=== PATIENT | female | born 1965 | race American Indian/Alaskan Native ===

== ENCOUNTER 2016-09-13 07:49 | Day surgery (SDC) | payer BC, MEDICARE ==
[~2016-09-13 07:49] MED LIST: ANCEF/STERILE WATER 2 GM/20 ML IV NR; HEPARIN SUB-Q NR; MARCAINE-EPI 0.25%-1:200,000 INFILTRATI ONE
[2016-09-13] MEDS ORDERED: ZOFRAN IV PRN (08:36)
--- NOTE | 2016-09-13 08:36 | Anesthesia Day of Surgery ---
Anesthesia Day of Surgery - Day of Surgery Patient Examined: Yes Patient H&P Reviewed: Yes Patient is NPO: Yes
--- NOTE | 2016-09-13 08:39 | Anesthesia Consultation ---
Anesthesia Consult and Med Hx Date of service: 09/13/16 - Airway Anesthetic Teeth Evaluation: Good, Crowns ROM Head & Neck: Adequate Mental/Hyoid Distance: Adequate Mallampati Class: Class II Intubation Access Assessment: Probably Good - Pulmonary Exam CTA: Yes - Cardiac Exam Cardiac Exam: RRR - Pre-Operative Health Status ASA Pre-Surgery Classification: ASA3 Proposed Anesthetic Plan: General - Pulmonary Hx Smoking: No Hx Asthma: No Hx Sleep Apnea: No (JUSTO PRE SCREEN LOW RISK) - Cardiovascular System Hx Hypertension: No - Central Nervous System Hx Back Pain: Yes (reumatoid arthritis) Hx Psychiatric Problems: Yes - Endocrine Hx Renal Disease: No (s/p creation of ureteral pouch for injured ureter) Hx End Stage Renal Disease: No (interstitial cystitis) Hx Cirrhosis: No Hx Liver Disease: No - Hematic Hx Anemia: Yes (Idiopathic thrombocytopenic purpura) - Other Systems Hx Cancer: No Hx Obesity: Yes
[2016-09-13] MEDS ORDERED: DIPRIVAN 10 MG/ML IV ONE (08:45)
[2016-09-13] MEDS ORDERED: DECADRON ONE (08:45)
[2016-09-13] MEDS ORDERED: XYLOCAINE MPF 2% ONE (08:48)
[2016-09-13 08:54] LABS: Basophils % (Auto) 0.8 % (0.0-1.8); Hematocrit 36.9 % (30.3-42.9); Hemoglobin 12.2 gm/dl (10.1-14.3); Mean Corpuscular HGB Conc 33 % (30-34); Mean Corpuscular Hemoglobin 28 pg (28-32); Mean Corpuscular Volume 85 fl (79-97); Red Blood Count 4.36 M/mm3 (3.65-5.03); Red Cell Distribution Width 13.3 % (13.2-15.2); White Blood Count 4.7 K/mm3 (4.5-11.0)
[2016-09-13] MEDS ORDERED: NACL 0.9% 1000 ML 1,000 ML IV SCH (09:00)
[2016-09-13] MEDS ORDERED: PEPCID PO NR (09:00)
[2016-09-13] MEDS ORDERED: VERSED IV NR (09:00)
[2016-09-13 09:01] LABS: Platelet Count 59 K/mm3 (140-440)
[2016-09-13] MEDS ORDERED: MARCAINE-EPI 0.25%-1:200,000 INFILTRATI ONE (09:10)
[2016-09-13] MEDS ORDERED: ePHEDrine SULFATE ONE (09:51)
[2016-09-13] MEDS ORDERED: ZEMURON IV ONE (10:00)
[2016-09-13] MEDS ORDERED: ROBINUL ONE ×2 (10:01)
[2016-09-13] MEDS ORDERED: NEOSTIGMINE ONE (10:01)
--- NOTE | 2016-09-13 10:15 | Short Stay Summary ---
Short Stay Documentation Date of service: 09/13/16 - Allergies and Medications Current Medications: Allergies acetaminophen [From Percocet] Allergy (Verified 09/06/16 11:32) Itching aspirin Allergy (Verified 09/28/15 14:31) Bleeding UNABLE TO TAKE BECAUSE OF ITP ibuprofen Allergy (Verified 09/28/15 14:31) Bleeding UNABLE TO TAKE DUE TO ITP meperidine HCl [From Demerol] Allergy (Verified 09/28/15 14:31) Headache STATES CAUSES HALLUCINATIONS oxycodone HCl [From Percocet] Allergy (Verified 09/06/16 11:32) Itching Sulfa (Sulfonamide Antibiotics) Allergy (Verified 09/28/15 14:31) Bleeding CAUSES LOW PLATLET LEVELS Home Medications Medication Instructions Recorded Confirmed Last Taken Type Meclizine [Antivert] 25 mg PO TID PRN #30 tablet 05/01/14 09/06/16 1 Month Ago Rx HYDROcodone/APAP 5-325 [Norris 1 - 2 each PO Q6HR PRN #14 tablet 05/24/1510/05/15 21:00 Rx 5-325 mg TAB] Cholecalciferol (Vitamin D3) 1,000 unit PO DAILY 09/28/15 09/13/16 09/10/16 09: 00 History [Vitamin D3] Esomeprazole Magnesium [NexIUM] 40 mg PO QDAY 09/28/15 09/13/16 09/10/16 09:00 History Estradiol 2 mg PO DAILY 09/28/15 09/13/16 09/10/16 09:00 History Pedi Multivit #61/Vit D3/Vit K 1 cap PO DAILY 09/28/15 09/06/16 10/04/15 History [Complete Formulation Multivit] Pentosan (Nf) [Elmiron (Nf)] 100 mg PO BID 09/28/15 09/06/16 10/04/15 History Prednisone [predniSONE (Faisal) ER 2 mg PO PRN PRN 09/28/15 09/06/16 1 Year Ago History TAB] Vitamin E 400 unit PO DAILY 09/28/15 09/13/16 09/10/16 09:00 History Azelastine 0.1% (Nf) [Astelin (Nf)] 1 spray INNOSTRIL QDAY 09/06/16 09/13/16 09:00 History Benzonatate [Benzonatate] 100 mg PO QDAY 09/06/16 09/13/16 09/10/16 09:00 History Cyclobenzaprine [Flexeril] 10 mg PO TID PRN 09/06/16 09/13/16 Unknown History Naloxegol Oxalate [Movantik] 25 mg PO QDAY 09/06/16 09/13/16 09/10/16 09:00 History Nitrofurantoin Macrocrystal 25 mg PO QDAY 09/06/16 09/13/16 09/10/16 09:00 History [Nitrofurantoin] Omeprazole 40 mg PO QDAY 09/06/16 09/13/16 09/10/16 09:00 History Active Medications Cefazolin Sodium (Ancef/Sterile Water 2 Gm/20 Ml) 2 gm IV PREOP NR Stop: 09/13/16 15:00 Heparin Sodium (Porcine) (Heparin) 5,000 unit SUB-Q PREOP NR Stop: 09/13/16 15:00 Last Admin: 09/13/16 08:54 Dose: 5,000 unit Hydromorphone HCl (Dilaudid) 0.5 mg IV Q10MIN PRN PRN Reason: Pain , Severe (7-10) Stop: 09/13/16 15:00 Sodium Chloride (Nacl 0.9% 1000 Ml) 1,000 mls @ 75 mls/hr IV DIRECT COLLIN Last Admin: 09/13/16 09:02 Dose: 75 mls/hr Midazolam HCl (Versed) 2 mg IV PREOP NR Stop: 09/13/16 23:59 Last Admin: 09/13/16 09:03 Dose: 2 mg - Brief post op/procedure progress note Date of procedure: 09/13/16 Pre-op diagnosis: RUQ abdominal pain Post-op diagnosis: same Procedure: Diagnostic laparoscopy with lysis of adhesions Anesthesia: GETA, local Surgeon: MACKENZIE WILKINSON Estimated blood loss: none Pathology: none Condition: stable - Disposition Condition at discharge: Good Disposition: DC-01 TO HOME OR SELFCARE Short Stay Discharge Plan Activity: no restrictions Diet: regular Wound: remove dressing (09/15/16 and then may shower) Follow up with: EMMA COMER MD [Primary Care Provider] - 7 Days MACKENZIE WILKINSON MD [Staff Physician] - 7 Days Prescriptions: HYDROcodone/APAP 5-325 [Norris 5/325] 1 - 2 each PO Q4HR PRN #30 tablet PRN Reason: Pain
--- NOTE | 2016-09-13 11:02 | Post Anesthesia Evaluation ---
- Post Anesthesia Evaluation Patient Participated: Yes Airway Patent: Yes Stable Respiratory Function: Yes Nausea/Vomiting: No Temp > 96.8F: Yes Pain Manageable: Yes Adequeate Hydration: Yes Anesthesia Complications: No Block Receding Appropriately: Not Applicable Patient on Ventilator: No
[2016-09-13] MEDS ORDERED: ZOFRAN ONE (11:15)
[2016-09-13] MEDS: DILAUDID IV PRN ×2 (11:22→11:32)
[2016-09-13] MEDS ORDERED: ZOFRAN IV ONE ×2 (11:30→13:00)
--- NOTE | 2016-09-13 11:55 | Operative Report ---
PREOPERATIVE DIAGNOSIS: Right upper quadrant abdominal pain. POSTOPERATIVE DIAGNOSIS: Right upper quadrant abdominal pain. PROCEDURE: Laparoscopic exploration with lysis of adhesions. SURGEON: Rylan Hines MD ANESTHESIA: General and local. ESTIMATED BLOOD LOSS: Minimal. SPECIMEN: None. DRAINS: None. IMPLANTS: None. COMPLICATIONS: None. INDICATIONS: This is a 51-year-old female who has right upper quadrant abdominal pain with nondiagnostic workup, presents now for a laparoscopic exploration, possible lysis of adhesions. OPERATIVE COURSE: The patient was brought to the operating room, identified, and placed in the supine position. General anesthesia was achieved. Her abdomen was prepped and draped in the usual manner. Prior to all incisions, the area was infiltrated with 0.25% Marcaine. We used prior scars and started with a left lateral 5 mm incision and using Veress needle technique. The abdomen was insufflated to 15 mmHg pressure. A 5 mm trocar was inserted using a 30-degree 5-mm telescope. The trocars were placed under direct vision, which included a left lower quadrant port site and an infraumbilical 5 mm port site. The abdomen was explored. She had mild fibrosis of the falciform ligament going to the supraumbilical area. This could potentially be causing some discomfort, so we freed this up and there were no other signs of ventral hernias, except for a small less than 1 cm incisional hernia at the infraumbilical scar, but this was so small and so broad-based and shallow that there was no risk of any incarceration and I do not believe this was the source of her discomfort. There was a small adhesion between the hepatic flexure and the abdominal wall, which we lysed with a sharp and minimal cautery. The surface of the liver was normal. There is no obvious hernia underneath the falciform ligament, which was otherwise soft and pliable. There were some omental adhesions to the lower midline, which we took down with some sharp dissection with very minimal cautery and there were some small bowel adhesions way down into the pelvis. There were no signs of any obstruction and these were nowhere near where her pain was and 2 lysis adhesions were higher risk of injury to the bowels consist the potential benefits was almost zero. I did not feel it was in her best interest to lysis adhesions to the bowel in the pelvis, so these were left in place. Otherwise, there was no other pathology seen, other than what was described. We therefore then removed the ports under direct vision. No signs of bleeding from the port site when evacuated the CO2 and then closed all the incisions with a 4-0 Vicryl suture, Steri-Strips and bandage. Please note also we did examine the surface of the bowel, the appendix, stomach and these were all normal in appearance. [facility]# [id number] ZACKERY/NTS
[2016-09-13 13:13] VITALS: BP 130/72
== END 2016-09-13 13:20 | disposition home or self-care (01) ==
LOC: OR 07:49
PROVIDERS: ATTEND Surgery
DX: K43.2 Incisional hernia without obstruction or gangrene (principal); N73.6 Female pelvic peritoneal adhesions (postinfective); K21.9 Gastro-esophageal reflux disease without esophagitis; E78.00 Pure hypercholesterolemia, unspecified; M06.9 Rheumatoid arthritis, unspecified; D64.9 Anemia, unspecified; E66.9 Obesity, unspecified; Z68.29 Body mass index [BMI] 29.0-29.9, adult; Z88.2 Allergy status to sulfonamides; Z88.8 Allergy status to other drugs, medicaments and biological substances; Z98.890 Other specified postprocedural states; Z90.710 Acquired absence of both cervix and uterus; Z79.899 Other long term (current) drug therapy; Z80.1 Family history of malignant neoplasm of trachea, bronchus and lung
CPT/HCPCS: 36415; 49320; 85025; J0690; J1100; J1170; J1644; J2250; J2405; J2704; J2710; J7030

== ENCOUNTER 2020-05-10 05:54 | Observation (INO) | payer BC ==
--- NOTE | 2020-05-10 06:15 | Event Note ---
ED Screening Note Date of service: 05/10/20 Time: 06:13 ED Screening Note: pt presents s/p syncope this am, states she passed at home striking chin and forehead on floor now with headache, and neck pain This initial assessment/diagnostic orders/clinical plan/treatment(s) is/are subject to change based on patients health status, clinical progression and re- assessment by fellow clinical providers in the ED. Further treatment and workup at subsequent clinical providers discretion. Patient/guardian urged not to elope from the ED as their condition may be serious if not clinically assessed and managed. Initial orders include: ct head, c spine, ekg, trop, cbc, cmp ua, cxr
[2020-05-10] MEDS ORDERED: SODIUM CHLORIDE 0.9% 1000 ML 1,000 ML IV ONE (06:38)
[2020-05-10 06:57] LABS: Basophils % (Auto) 0.6 % (0.0-1.8); Eosinophils # (Auto) 0.1 K/mm3 (0.0-0.4); Eosinophils % (Auto) 1.1 % (0.0-4.3); Hematocrit 34.4 % (30.3-42.9); Hemoglobin 11.5 gm/dl (10.1-14.3); Lymphocytes # (Auto) 2.7 K/mm3 (1.2-5.4); Lymphocytes % (Auto) 40.3 % (13.4-35.0); Mean Corpuscular HGB Conc 33 % (30-34); Mean Corpuscular Volume 88 fl (79-97); Monocytes # (Auto) 0.5 K/mm3 (0.0-0.8); Monocytes % (Auto) 7.5 % (0.0-7.3); Red Blood Count 3.93 M/mm3 (3.65-5.03); Red Cell Distribution Width 13.1 % (13.2-15.2)
[2020-05-10 06:58] LABS: Alanine Aminotransferase 26 units/L (7-56); Albumin 4.1 g/dL (3.9-5); BUN/Creatinine Ratio 12; Blood Urea Nitrogen 13 mg/dL (7-17); Calcium 8.9 mg/dL (8.4-10.2); Hemolysis Index 3
[2020-05-10 06:59] LABS: Platelet Count 75 K/mm3 (140-440)
--- NOTE | 2020-05-10 07:02 | Cat Scan Report ---
CT HEAD WITHOUT CONTRAST INDICATION / CLINICAL INFORMATION: Syncope. Fall. TECHNIQUE: All CT scans at this location are performed using CT dose reduction for ALARA by means of automated exposure control. COMPARISON: None available. FINDINGS: HEMORRHAGE: None. EXTRA-AXIAL SPACES: Normal in size and morphology for the patient's age. VENTRICULAR SYSTEM: Normal in size and morphology for the patient's age. CEREBRAL PARENCHYMA: No significant abnormality. No acute territorial infarct. MIDLINE SHIFT / HERNIATION: None. CEREBELLUM / BRAINSTEM: No significant abnormality. ORBITS: Normal as visualized. SOFT TISSUES: No significant abnormality. SKULL: No significant abnormality. PARANASAL SINUSES / MASTOID AIR CELLS: Normal as visualized. ADDITIONAL FINDINGS: None. IMPRESSION: 1. No acute intracranial abnormality. Signer Name: Elham Mckoy MD Signed: 05/10/2020 6:57 AM Workstation Name: [id number]
--- NOTE | 2020-05-10 07:03 | Cat Scan Report ---
CT MAXILLOFACIAL WITHOUT CONTRAST INDICATION / CLINICAL INFORMATION: Syncope, fall, jaw pain and swelling. TECHNIQUE: All CT scans at this location are performed using CT dose reduction for ALARA by means of automated exposure control. COMPARISON: None available. FINDINGS: FACIAL BONES: No fracture or other significant abnormality. PARANASAL SINUSES: No significant abnormality. ORBITS: No significant abnormality. SOFT TISSUES: Soft tissue swelling around the chin. VISUALIZED INTRACRANIAL STRUCTURES: No significant abnormality. ADDITIONAL FINDINGS: None. IMPRESSION: 1. No facial bone fracture. 2. Soft tissue swelling around the chin. Signer Name: Elham Mckoy MD Signed: 05/10/2020 6:59 AM Workstation Name: [id number]
--- NOTE | 2020-05-10 07:04 | Cat Scan Report ---
CT CERVICAL SPINE WITHOUT CONTRAST INDICATION / CLINICAL INFORMATION: Syncope, fall, now with neck pain. TECHNIQUE: Axial CT images were obtained through the cervical spine. Sagittal and coronal reformatted images were produced. All CT scans at this location are performed using CT dose reduction for ALARA by means of automated exposure control. COMPARISON: None available. FINDINGS: VERTEBRAE: No significant abnormality. ALIGNMENT: No significant abnormality. DISC SPACES: No significant abnormality. FACET JOINTS: No significant abnormality. CRANIOCERVICAL JUNCTION:No significant abnormality. SPINAL CANAL: No significant abnormality. PARASPINAL SOFT TISSUES: No significant abnormality. ADDITIONAL FINDINGS: None. LUNG APICES: No significant abnormality of visualized lungs. IMPRESSION: 1. No significant abnormality. Signer Name: Elham Mckoy MD Signed: 05/10/2020 7:00 AM Workstation Name: [id number]
[2020-05-10 07:05] LABS: INR 0.97 (0.87-1.13)
[2020-05-10 07:06] LABS: Partial Thromboplastin Time 22.5 Sec. (24.2-36.6)
--- NOTE | 2020-05-10 07:39 | XRay Report ---
CHEST 1 VIEW 05/10/2020 6:31 AM INDICATION / CLINICAL INFORMATION: syncope. COMPARISON: 05/24/15 FINDINGS: SUPPORT DEVICES: None. HEART / MEDIASTINUM: No significant abnormality. LUNGS / PLEURA: No significant pulmonary or pleural abnormality. No pneumothorax. ADDITIONAL FINDINGS: No significant additional findings. IMPRESSION: 1. No acute findings. No change. Signer Name: Elham Mckoy MD Signed: 05/10/2020 7:35 AM Workstation Name: [id number]
[2020-05-10 07:52] LABS: Amphetamine Screen,Urine Negative; Benzodiazepines Screen,Urine Negative; Cannabinoid Screen,Urine Negative; Cocaine Screen,Urine Negative; Methadone Screen,Urine Negative
[2020-05-10 08:03] LABS: Opiate Screen,Urine Positive
[2020-05-10 08:05] LABS: Bilirubin,Urine NEG (Negative); Blood,Urine NEG (Negative); Color,Urine Amber (Yellow); Hyaline Casts,Urine 1 /LPF; Mucus,Urine 3+ /HPF
--- NOTE | 2020-05-10 08:51 | Cat Scan Report ---
CTA HEAD AND NECK WITH CONTRAST HISTORY: Headache and syncope COMPARISON: None. TECHNIQUE: Routine non-contrast CT Head, post-contrast CTA of the head, post-contrast CTA of the neck and post-contrast CT Head are performed. 3-D/MIP reformats postprocessed. Percentage stenosis is de termined by direct quantitative measurements of diseased internal carotid artery diameter compared wi th normal distal internal carotid artery reference segments or by criteria similar to NASCET where ap plicable. CONTRAST: 100 ml of Omnipaque 350 FINDINGS: CTA HEAD: Intracranial vertebral arteries: No significant abnormality. Basilar artery: No significant abnormality. Posterior cerebral arteries: No significant abnormality. Intracranial internal carotid arteries: No significant abnormality. Anterior cerebral arteries: No significant abnormality. Middle cerebral arteries: No significant abnormality. Dural venous sinuses:Not optimally opacified. No significant abnormality. CTA NECK: Aortic arch: No significant abnormality. Cervical vertebral arteries: No significant abnormality. Common carotid arteries: No significant abnormality. Cervical internal carotid arteries: No significant abnormality. Additional findings: None. IMPRESSION: 1. No significant abnormality. Signer Name: Tee Maldonado Jr, MD Signed: 05/10/2020 8:46 AM Workstation Name: [id number]
--- NOTE | 2020-05-10 10:46 | Emergency Department Report ---
ED General Adult HPI - General Chief complaint: Syncope Stated complaint: SYNCOPE Time Seen by Provider: 05/10/20 06:36 Source: patient, EMS Mode of arrival: Wheelchair Limitations: Altered Mental Status - History of Present Illness Initial comments: This is a 41-year-old female with 2 apparent syncopal episodes today. On both occasions the patient had no prodromal symptoms. The first time she was on the commode and found herself on the floor. The second time she was in her bedroom and she passed out again. I believe the episodes were relatively brief. She stated the second time she found her hovering over her. EMS was summoned and the patient was transported for further evaluation. Patient stated that after her syncopal episode #2 she had a fairly diffuse and severe headache. She stated that the headache has dramatically improved since the episode occurred. Patient states that about a year ago she had a prior syncopal episode. She went to see her primary care doctor. She stated that the primary care doctor thought it was due to a blood pressure medicine that "she did not need anymore". The patient reports an impact to her chin she thinks after the first episode. It is tender at that location. She denies any neck pain whatsoever. She denies any head injury. She does not report any other intercurrent symptoms. -: Sudden Location: face Radiation: non-radiation Severity scale (0 -10): 0 Quality: aching Consistency: intermittent Improves with: none (Improved spontaneously) Worsens with: none Associated Symptoms: denies other symptoms (Chin sore secondary to injury) - Related Data Home Medications Medication Instructions Recorded Confirmed Last Taken Amitriptyline [Elavil] 10 mg PO QHS 05/10/20 05/10/20 Unknown AtorvaSTATin [Lipitor] 20 mg PO QHS 05/10/20 05/10/20 Unknown Cyclobenzaprine [Flexeril] 10 mg PO TID PRN 05/10/20 05/10/20 Unknown Dicyclomine [Bentyl] 10 mg PO QID 05/10/20 05/10/20 Unknown Duloxetine HCl [Drizalma Sprinkle] 60 mg PO QDAY 05/10/20 05/10/20 Unknown Esomeprazole Magnesium [NexIUM] 40 mg PO QDAY 05/10/20 05/10/20 Unknown HYDROcodone/APAP 5-325 [[place] 1 each PO Q6HR PRN 05/10/20 05/10/20 Unknown 5/325] Lubiprostone (Nf) [Amitiza (Nf)] 1 cap PO BID 05/10/20 05/10/20 Unknown Meclizine [Antivert] 25 mg PO TID PRN 05/10/20 05/10/20 Unknown traMADoL [Ultram] 50 mg PO Q4HR PRN 05/10/20 05/10/20 Unknown traZODone [Desyrel] 100 mg PO QHS 05/10/20 05/10/20 Unknown Allergies Allergy/AdvReac Type Severity Reaction Status Date / Time aspirin Allergy Bleeding Verified 09/28/15 14:31 ibuprofen Allergy Bleeding Verified 09/28/15 14:31 meperidine HCl [From Demerol] Allergy Headache Verified 09/28/15 14:31 oxycodone HCl [From Percocet] Allergy Itching Verified 09/06/16 11:32 Sulfa (Sulfonamide Allergy Bleeding Verified 09/28/15 14:31 Antibiotics) ED Review of Systems ROS: Stated complaint: SYNCOPE Other details as noted in HPI Constitutional: denies: chills, fever Eyes: eye discharge. denies: eye pain, vision change ENT: denies: ear pain, throat pain Respiratory: denies: cough, shortness of breath Cardiovascular: denies: chest pain, palpitations Endocrine: no symptoms reported Gastrointestinal: denies: abdominal pain, nausea, diarrhea Genitourinary: denies: urgency, dysuria Musculoskeletal: denies: back pain, joint swelling, arthralgia Skin: denies: rash, lesions Neurological: as per HPI, headache. denies: weakness, paresthesias Psychiatric: denies: anxiety, depression Hematological/Lymphatic: denies: easy bleeding, easy bruising ED Past Medical Hx - Past Medical History Previous Medical History?: Yes Hx Hypertension: No Hx GERD: Yes Hx Liver Disease: No Hx Renal Disease: No (s/p creation of ureteral pouch for injured ureter) Hx Asthma: No Additional medical history: Interstitial Cystitis, ITP, Anemia,HIGH CHOLESTEROL - Surgical History Past Surgical History?: Yes Hx Cholecystectomy: Yes (2011) Hx Breast Surgery: Yes (CYST REMOVED FROM LT BREAST) Additional Surgical History: Hysterectomy, Left breast cyst removal, scar tissue removed (due to hysterectomy). right shoulder 04/20 - Social History Smoking Status: Never Smoker Substance Use Type: None - Medications Home Medications: Home Medications Medication Instructions Recorded Confirmed Last Taken Type Amitriptyline [Elavil] 10 mg PO QHS 05/10/20 05/10/20 Unknown History AtorvaSTATin [Lipitor] 20 mg PO QHS 05/10/20 05/10/20 Unknown History Cyclobenzaprine [Flexeril] 10 mg PO TID PRN 05/10/20 05/10/20 Unknown History Dicyclomine [Bentyl] 10 mg PO QID 05/10/20 05/10/20 Unknown History Duloxetine HCl [Drizalma Sprinkle] 60 mg PO QDAY 05/10/20 05/10/20 Unknown History Esomeprazole Magnesium [NexIUM] 40 mg PO QDAY 05/10/20 05/10/20 Unknown History HYDROcodone/APAP 5-325 [[place] 1 each PO Q6HR PRN 05/10/20 05/10/20 Unknown History 5/325] Lubiprostone (Nf) [Amitiza (Nf)] 1 cap PO BID 05/10/20 05/10/20 Unknown History Meclizine [Antivert] 25 mg PO TID PRN 05/10/20 05/10/20 Unknown History traMADoL [Ultram] 50 mg PO Q4HR PRN 05/10/20 05/10/20 Unknown History traZODone [Desyrel] 100 mg PO QHS 05/10/20 05/10/20 Unknown History ED Physical Exam - General Limitations: Physical Limitation General appearance: alert, in no apparent distress, obese - Head Head exam: Present: atraumatic, normocephalic - Eye Eye exam: Present: normal appearance - ENT ENT exam: Present: mucous membranes moist, other (Patient swelling menton without obvious deformity or dental injury/displacement) - Neck Neck exam: Present: normal inspection, full ROM. Absent: tenderness, meningismus - Respiratory Respiratory exam: Present: normal lung sounds bilaterally. Absent: respiratory distress - Cardiovascular Cardiovascular Exam: Present: regular rate, normal rhythm. Absent: systolic murmur, diastolic murmur, rubs, gallop - GI/Abdominal GI/Abdominal exam: Present: soft, normal bowel sounds. Absent: distended, tenderness, guarding, rebound, rigid - Extremities Exam Extremities exam: Present: normal inspection, normal capillary refill. Absent: calf tenderness - Back Exam Back exam: Present: normal inspection. Absent: CVA tenderness (R), CVA tenderness (L), muscle spasm, paraspinal tenderness, vertebral tenderness - Neurological Exam Neurological exam: Present: alert, oriented X3, CN II-XII intact. Absent: motor sensory deficit - Psychiatric Psychiatric exam: Present: normal affect, normal mood - Skin Skin exam: Present: warm, dry, intact, normal color. Absent: rash ED Course Vital Signs 05/10/20 05/10/20 05/10/20 05:59 07:27 07:46 Temperature 97.8 F Pulse Rate 86 87 Respiratory 18 19 Rate Blood Pressure 102/57 Blood Pressure 126/74 [Left] O2 Sat by Pulse 100 98 98 Oximetry 05/10/20 11:41 Temperature Pulse Rate 84 Respiratory 22 Rate Blood Pressure Blood Pressure 123/76 [Left] O2 Sat by Pulse 98 Oximetry - Reevaluation(s) Reevaluation #1: Patient has remained clinically stable. She had a D-dimer of less than 400. He had no symptoms referable to pulmonary embolism. However a VQ scan is ordered. He is referred to the hospitalist service for evaluation of recurrent syncope. 05/10/20 11:25 Reevaluation #2: Patient's thrombocytopenia was noted. A repeat CBC will be ordered. She has been admitted. 05/10/20 14:07 05/10/20 14:07 ED Medical Decision Making - Lab Data Result diagrams: 05/10/20 06:24 05/10/20 06:24 Laboratory Results - last 24 hr 05/10/20 05/10/20 05/10/20 06:24 06:24 06:47 WBC 6.6 RBC 3.93 Hgb 11.5 Hct 34.4 MCV 88 MCH 29 MCHC 33 RDW 13.1 L Plt Count 75 L Lymph % (Auto) 40.3 H Barton % (Auto) 7.5 H Eos % (Auto) 1.1 Baso % (Auto) 0.6 Lymph # (Auto) 2.7 Barton # (Auto) 0.5 Eos # (Auto) 0.1 Baso # (Auto) 0.0 Seg Neutrophils % 50.5 Seg Neutrophils # 3.4 PT 12.8 INR 0.97 APTT 22.5 L D-Dimer 345.92 H Sodium 140 Potassium 3.8 Chloride 104.2 Carbon Dioxide 29 Anion Gap 11 BUN 13 Creatinine 1.1 Estimated GFR > 60 BUN/Creatinine Ratio 12 Glucose 134 H Lactic Acid Calcium 8.9 Magnesium Total Bilirubin 0.20 AST 22 ALT 26 Alkaline Phosphatase 119 Troponin T < 0.010 NT-Pro-B Natriuret Pep Total Protein 6.9 Albumin 4.1 Albumin/Globulin Ratio 1.5 Urine Color Urine Turbidity Urine pH Ur Specific Kendrick Urine Protein Urine Glucose (UA) Urine Ketones Urine Blood Urine Nitrite Urine Bilirubin Urine Urobilinogen Ur Leukocyte Esterase Urine WBC (Auto) Urine RBC (Auto) U Epithel Cells (Auto) Hyaline Casts Urine Mucus Urine Opiates Screen Urine Methadone Screen Ur Barbiturates Screen Ur Phencyclidine Scrn Ur Amphetamines Screen U Benzodiazepines Scrn Urine Cocaine Screen U Marijuana (THC) Screen Drugs of Abuse Note Plasma/Serum Alcohol 05/10/20 05/10/20 05/10/20 06:47 06:57 Unknown WBC RBC Hgb Hct MCV MCH MCHC RDW Plt Count Lymph % (Auto) Barton % (Auto) Eos % (Auto) Baso % (Auto) Lymph # (Auto) Barton # (Auto) Eos # (Auto) Baso # (Auto) Seg Neutrophils % Seg Neutrophils # PT INR APTT D-Dimer Sodium Potassium Chloride Carbon Dioxide Anion Gap BUN Creatinine Estimated GFR BUN/Creatinine Ratio Glucose Lactic Acid 2.00 Calcium Magnesium Total Bilirubin AST ALT Alkaline Phosphatase Troponin T NT-Pro-B Natriuret Pep Total Protein Albumin Albumin/Globulin Ratio Urine Color Francheska Urine Turbidity Slightly-cloudy Urine pH 5.0 Ur Specific Kendrick 1.029 Urine Protein 30 mg/dl Urine Glucose (UA) Neg Urine Ketones Neg Urine Blood Neg Urine Nitrite Neg Urine Bilirubin Neg Urine Urobilinogen 2.0 Ur Leukocyte Esterase Neg Urine WBC (Auto) 3.0 Urine RBC (Auto) 1.0 U Epithel Cells (Auto) 9.0 Hyaline Casts 1 Urine Mucus 3+ Urine Opiates Screen Urine Methadone Screen Ur Barbiturates Screen Ur Phencyclidine Scrn Ur Amphetamines Screen U Benzodiazepines Scrn Urine Cocaine Screen U Marijuana (THC) Screen Drugs of Abuse Note Plasma/Serum Alcohol < 0.01 05/10/20 05/10/20 Unknown Unknown WBC RBC Hgb Hct MCV MCH MCHC RDW Plt Count Lymph % (Auto) Barton % (Auto) Eos % (Auto) Baso % (Auto) Lymph # (Auto) Barton # (Auto) Eos # (Auto) Baso # (Auto) Seg Neutrophils % Seg Neutrophils # PT INR APTT D-Dimer Sodium Potassium Chloride Carbon Dioxide Anion Gap BUN Creatinine Estimated GFR BUN/Creatinine Ratio Glucose Lactic Acid Calcium Magnesium 2.10 Total Bilirubin AST ALT Alkaline Phosphatase Troponin T NT-Pro-B Natriuret Pep 30.46 Total Protein Albumin Albumin/Globulin Ratio Urine Color Urine Turbidity Urine pH Ur Specific Kend[place] Urine Protein Urine Glucose (UA) Urine Ketones Urine Blood Urine Nitrite Urine Bilirubin Urine Urobilinogen Ur Leukocyte Esterase Urine WBC (Auto) Urine RBC (Auto) U Epithel Cells (Auto) Hyaline Casts Urine Mucus Urine Opiates Screen Positive Urine Methadone Screen Negative Ur Barbiturates Screen Negative Ur Phencyclidine Scrn Negative Ur Amphetamines Screen Negative U Benzodiazepines Scrn Negative Urine Cocaine Screen Negative U Marijuana (THC) Screen Negative Drugs of Abuse Note Disclamer Plasma/Serum Alcohol - EKG Data -: EKG Interpreted by Me EKG shows normal: sinus rhythm, axis, intervals, QRS complexes, ST-T waves Rate: normal - EKG Data Interpretation: no acute changes - Radiology Data Radiology results: report reviewed (CTs of the head face cervical spine read as negative per radiologist. CTA of the head and neck negative for angiographic abnormality. ) Critical care attestation.: If time is entered above; I have spent that time in minutes in the direct care of this critically ill patient, excluding procedure time. ED Disposition Clinical Impression: Recurrent syncope, Thrombocytopenia Disposition: OP ADMIT IP TO THIS HOSP Is pt being admited?: Yes Does the pt Need Aspirin: Yes Condition: Stable Time of Disposition: 11:26
--- NOTE | 2020-05-10 11:27 | Nuclear Medicine Report ---
NUCLEAR MEDICINE PERFUSION LUNG SCAN INDICATION / CLINICAL INFORMATION: Syncope, mildly elevated dimer. TECHNIQUE: 5.3 mCi of Tc-99m MAA were given by IV. COMPARISON: Chest radiograph dated 05/10/2020. FINDINGS: PERFUSION: No significant perfusion defects. ADDITIONAL FINDINGS: None. IMPRESSION: 1. Low probability for pulmonary embolism. Signer Name: Jb Snyder MD Signed: 05/10/2020 11:22 AM Workstation Name: [id number]
[2020-05-10 15:40] LABS: Basophils % (Auto) 0.4 % (0.0-1.8); Eosinophils % (Auto) 0.4 % (0.0-4.3); Hematocrit 34.1 % (30.3-42.9); Hemoglobin 11.3 gm/dl (10.1-14.3); Lymphocytes # (Auto) 2.8 K/mm3 (1.2-5.4); Lymphocytes % (Auto) 41.9 % (13.4-35.0); Mean Corpuscular HGB Conc 33 % (30-34); Mean Corpuscular Volume 87 fl (79-97); Monocytes # (Auto) 0.4 K/mm3 (0.0-0.8); Monocytes % (Auto) 5.9 % (0.0-7.3); Red Blood Count 3.93 M/mm3 (3.65-5.03); Red Cell Distribution Width 13.4 % (13.2-15.2)
[2020-05-10 15:47] LABS: Platelet Count 85 K/mm3 (140-440)
[2020-05-10] MEDS ORDERED: ONDANSETRON 4 MG/2 ML INJ IV PRN (21:03)
[2020-05-10] MEDS ORDERED: CYCLOBENZAPRINE 10 MG TAB PO PRN (21:06)
--- NOTE | 2020-05-10 21:48 | History and Physical Report ---
History of Present Illness Date of examination: 05/10/20 Date of admission: 05/10/20 11:46 Chief complaint: Syncope x2 History of present illness: 55-year-old -[place] female with history of hypertension, GERD, HLD, chronic right shoulder pain (s/p right shoulder surgery), and recurrent syncope who presents to [facility] ED with complaints of syncopal episodes x2. For the first syncopal episode, patient states she was on commode and found herself on the floor. She reports an impact to her chin and describes the area as tender. On the second syncopal episode patient found her hovering over her. On both occasions there was no prodromal symptoms. EMS was called patient was transported to our facility for further evaluation and treatment. Patient acknowledges prior syncopal episodes approximately 1 year ago, at which time she went to her PCP for evaluation. She reports her PCP thought syncopal episode was secondary to antihypertensive medication (which she no longer takes). Endorses tenderness to chin and moderate to severe generalized headache. Denies nausea, vomiting, diarrhea, fever, chills, chest pain, shortness of breath, palpitations, alterations in vision, alterations in gait, abdominal pain, cough, head injury/trauma, or recent sick contacts Past History Past Medical History: other (HTN, GERD, internal cystitis, ITP, anemia, HLD, chronic pain) Past Surgical History: Other (Status post creation of urethral pouch,Hysterectomy, Left breast cyst removal, scar tissue removed (due to hysterectomy). right shoulder 04/20, cholecystectomy) Social history: , lives with family, full code. denies: smoking, alcohol abuse, prescription drug abuse, IV drug use Family history: hypertension Medications and Allergies Allergies Allergy/AdvReac Type Severity Reaction Status Date / Time aspirin Allergy Bleeding Verified 09/28/15 14:31 ibuprofen Allergy Bleeding Verified 09/28/15 14:31 meperidine HCl [From Demerol] Allergy Headache Verified 09/28/15 14:31 oxycodone HCl [From Percocet] Allergy Itching Verified 09/06/16 11:32 Sulfa (Sulfonamide Allergy Bleeding Verified 09/28/15 14:31 Antibiotics) Home Medications Medication Instructions Recorded Confirmed Last Taken Type Amitriptyline [Elavil] 10 mg PO QHS 05/10/20 05/10/20 Unknown History AtorvaSTATin [Lipitor] 20 mg PO QHS 05/10/20 05/10/20 Unknown History Cyclobenzaprine [Flexeril] 10 mg PO TID PRN 05/10/20 05/10/20 Unknown History Dicyclomine [Bentyl] 10 mg PO QID 05/10/20 05/10/20 Unknown History Duloxetine HCl [Drizalma Sprinkle] 60 mg PO QDAY 05/10/20 05/10/20 Unknown History Esomeprazole Magnesium [NexIUM] 40 mg PO QDAY 05/10/20 05/10/20 Unknown History HYDROcodone/APAP 5-325 [[place] 1 each PO Q6HR PRN 05/10/20 05/10/20 Unknown History 5/325] Lubiprostone (Nf) [Amitiza (Nf)] 1 cap PO BID 05/10/20 05/10/20 Unknown History Meclizine [Antivert] 25 mg PO TID PRN 05/10/20 05/10/20 Unknown History traMADoL [Ultram] 50 mg PO Q4HR PRN 05/10/20 05/10/20 Unknown History traZODone [Desyrel] 100 mg PO QHS 05/10/20 05/10/20 Unknown History Active Meds: Active Medications Acetaminophen (Acetaminophen 325 Mg Tab) 650 mg PO Q4H PRN PRN Reason: Pain, Mild (1-3) Atorvastatin Calcium (Atorvastatin 20 Mg Tab) 20 mg PO QHS [facility] Cyclobenzaprine HCl (Cyclobenzaprine 10 Mg Tab) 10 mg PO TID PRN PRN Reason: Muscle Spasm Docusate Sodium (Docusate Sodium 100 Mg Cap) 100 mg PO BID COLLIN Duloxetine HCl (Duloxetine 30 Mg Cap) 60 mg PO QDAY [facility] Ondansetron HCl (Ondansetron 4 Mg/2 Ml Inj) 4 mg IV Q6H PRN PRN Reason: Nausea And Vomiting Pantoprazole Sodium (Pantoprazole 40 Mg Tab) 40 mg PO DAILY COLLIN Sodium Chloride (Sodium Chloride 0.9% 10 Ml Flush Syringe) 10 ml IV BID COLLIN Sodium Chloride (Sodium Chloride 0.9% 10 Ml Flush Syringe) 10 ml IV PRN PRN PRN Reason: LINE FLUSH Review of Systems All systems: negative (As noted in HPI) Exam - Physical Exam Narrative exam: Physical exam General appearance: Present: No acute distress, alert and oriented 3, middle- aged adult -[place] female, slight swelling around chin - EENT Eyes: Present: PERRL, EOM intact ENT: hearing intact, normal dentition - Neck Neck: Present: supple, normal ROM - Respiratory Respiratory effort: Non-labored Respiratory: Clear throughout - Cardiovascular Heart rate: 88 (bpm) Rhythm: Sinus Heart Sounds: Present: S1 & S2. Absent: rub, click - Extremities Extremities: no ischemia, pulses intact, - Peripheral Assessment Peripheral Pulses: within normal limits - Abdominal General gastrointestinal: soft, non-tender, normal bowel sounds - Integumentary Integumentary: Present: warm, dry - Musculoskeletal Musculoskeletal: Able to move all extremities -Neurological Neurological: CN II-XII intact - Psychiatric Psychiatric: cooperative - Constitutional Vitals: Temp Pulse Resp BP Pulse Ox 98.6 F 90 18 141/68 98 05/10/20 20:28 05/10/20 20:28 05/10/20 16:09 05/10/20 20:28 05/10/20 20:16 HEART Score - HEART Score Troponin: Troponin T < 0.010 ng/mL (0.00-0.029) 05/10/20 06:24 Results - Labs CBC & Chem 7: 05/10/20 14:43 05/10/20 06:24 Labs: Laboratory Last Values WBC 6.6 K/mm3 (4.5-11.0) 05/10/20 14:43 RBC 3.93 M/mm3 (3.65-5.03) 05/10/20 14:43 Hgb 11.3 gm/dl (10.1-14.3) 05/10/20 14:43 Hct 34.1 % (30.3-42.9) 05/10/20 14:43 MCV 87 fl (79-97) 05/10/20 14:43 MCH 29 pg (28-32) 05/10/20 14:43 MCHC 33 % (30-34) 05/10/20 14:43 RDW 13.4 % (13.2-15.2) 05/10/20 14:43 Plt Count 85 K/mm3 (140-440) L 05/10/20 14:43 Lymph % (Auto) 41.9 % (13.4-35.0) H 05/10/20 14:43 [place] % (Auto) 5.9 % (0.0-7.3) 05/10/20 14:43 Eos % (Auto) 0.4 % (0.0-4.3) 05/10/20 14:43 Baso % (Auto) 0.4 % (0.0-1.8) 05/10/20 14:43 Lymph # (Auto) 2.8 K/mm3 (1.2-5.4) 05/10/20 14:43 [place] # (Auto) 0.4 K/mm3 (0.0-0.8) 05/10/20 14:43 Eos # (Auto) 0.0 K/mm3 (0.0-0.4) 05/10/20 14:43 Baso # (Auto) 0.0 K/mm3 (0.0-0.1) 05/10/20 14:43 Seg Neutrophils % 51.4 % (40.0-70.0) 05/10/20 14:43 Seg Neutrophils # 3.4 K/mm3 (1.8-7.7) 05/10/20 14:43 PT 12.8 Sec. (12.2-14.9) 05/10/20 06:47 INR 0.97 (0.87-1.13) 05/10/20 06:47 APTT 22.5 Sec. (24.2-36.6) L 05/10/20 06:47 D-Dimer 345.92 ng/mlDDU (0-234) H 05/10/20 06:47 Sodium 140 mmol/L (137-145) 05/10/20 06:24 Potassium 3.8 mmol/L (3.6-5.0) 05/10/20 06:24 Chloride 104.2 mmol/L (98-107) 05/10/20 06:24 Carbon Dioxide 29 mmol/L (22-30) 05/10/20 06:24 Anion Gap 11 mmol/L 05/10/20 06:24 BUN 13 mg/dL (7-17) 05/10/20 06:24 Creatinine 1.1 mg/dL (0.6-1.2) 05/10/20 06:24 Estimated GFR > 60 ml/min 05/10/20 06:24 BUN/Creatinine Ratio 12 % 05/10/20 06:24 Glucose 134 mg/dL (65-100) H 05/10/20 06:24 Lactic Acid 2.00 mmol/L (0.7-2.0) 05/10/20 06:57 Calcium 8.9 mg/dL (8.4-10.2) 05/10/20 06:24 Magnesium 2.10 mg/dL (1.7-2.3) 05/10/20 Unknown Total Bilirubin 0.20 mg/dL (0.1-1.2) 05/10/20 06:24 AST 22 units/L (5-40) 05/10/20 06:24 ALT 26 units/L (7-56) 05/10/20 06:24 Alkaline Phosphatase 119 units/L (35-129) 05/10/20 06:24 Troponin T < 0.010 ng/mL (0.00-0.029) 05/10/20 06:24 NT-Pro-B Natriuret Pep 30.46 pg/mL (0-900) 05/10/20 Unknown Total Protein 6.9 g/dL (6.3-8.2) 05/10/20 06:24 Albumin 4.1 g/dL (3.9-5) 05/10/20 06:24 Albumin/Globulin Ratio 1.5 % 05/10/20 06:24 Urine Color [place] (Yellow) 05/10/20 Unknown Urine Turbidity Slightly-cloudy (Clear) 05/10/20 Unknown Urine pH 5.0 (5.0-7.0) 05/10/20 Unknown Ur Specific [place] 1.029 (1.003-1.030) 05/10/20 Unknown Urine Protein 30 mg/dl mg/dL (Negative) 05/10/20 Unknown Urine Glucose (UA) Neg mg/dL (Negative) 05/10/20 Unknown Urine Ketones Neg mg/dL (Negative) 05/10/20 Unknown Urine Blood Neg (Negative) 05/10/20 Unknown Urine Nitrite Neg (Negative) 05/10/20 Unknown Urine Bilirubin Neg (Negative) 05/10/20 Unknown Urine Urobilinogen 2.0 mg/dL (<2.0) 05/10/20 Unknown Ur Leukocyte Esterase Neg (Negative) 05/10/20 Unknown Urine WBC (Auto) 3.0 /HPF (0.0-6.0) 05/10/20 Unknown Urine RBC (Auto) 1.0 /HPF (0.0-6.0) 05/10/20 Unknown U Epithel Cells (Auto) 9.0 /HPF (0-13.0) 05/10/20 Unknown Hyaline Casts 1 /LPF 05/10/20 Unknown Urine Mucus 3+ /HPF 05/10/20 Unknown Urine Opiates Screen Positive 05/10/20 Unknown Urine Methadone Screen Negative 05/10/20 Unknown Ur Barbiturates Screen Negative 05/10/20 Unknown Ur Phencyclidine Scrn Negative 05/10/20 Unknown Ur Amphetamines Screen Negative 05/10/20 Unknown U Benzodiazepines Scrn Negative 05/10/20 Unknown Urine Cocaine Screen Negative 05/10/20 Unknown U Marijuana (THC) Screen Negative 05/10/20 Unknown Drugs of Abuse Note Disclamer 05/10/20 Unknown Plasma/Serum Alcohol < 0.01 % (0-0.07) 05/10/20 06:47 - Imaging and Cardiology Imaging and Cardiology: CT Head: FINDINGS: HEMORRHAGE: None. EXTRA-AXIAL SPACES: Normal in size and morphology for the patient's age. VENTRICULAR SYSTEM: Normal in size and morphology for the patient's age. CEREBRAL PARENCHYMA: No significant abnormality. No acute territorial infarct. MIDLINE SHIFT / HERNIATION: None. CEREBELLUM / BRAINSTEM: No significant abnormality. ORBITS: Normal as visualized. SOFT TISSUES: No significant abnormality. SKULL: No significant abnormality. PARANASAL SINUSES / MASTOID AIR CELLS: Normal as visualized. ADDITIONAL FINDINGS: None. IMPRESSION: 1. No acute intracranial abnormality. CT Angio Head/Neck: CTA HEAD: Intracranial vertebral arteries: No significant abnormality. Basilar artery: No significant abnormality. Posterior cerebral arteries: No significant abnormality. Intracranial internal carotid arteries: No significant abnormality. Anterior cerebral arteries: No significant abnormality. Middle cerebral arteries: No significant abnormality. Dural venous sinuses:Not optimally opacified. No significant abnormality. CTA NECK: Aortic arch: No significant abnormality. Cervical vertebral arteries: No significant abnormality. Common carotid arteries: No significant abnormality. Cervical internal carotid arteries: No significant abnormality. Additional findings: None. IMPRESSION: 1. No significant abnormality. V/Q Scan: IMPRESSION: 1. Low probability for pulmonary embolism. CXR: FINDINGS: SUPPORT DEVICES: None. HEART / MEDIASTINUM: No significant abnormality. LUNGS / PLEURA: No significant pulmonary or pleural abnormality. No pneumothorax. ADDITIONAL FINDINGS: No significant additional findings. IMPRESSION: 1. No acute findings. No change. CT C-spine: FINDINGS: VERTEBRAE: No significant abnormality. ALIGNMENT: No significant abnormality. DISC SPACES: No significant abnormality. FACET JOINTS: No significant abnormality. CRANIOCERVICAL JUNCTION:No significant abnormality. SPINAL CANAL: No significant abnormality. PARASPINAL SOFT TISSUES: No significant abnormality. ADDITIONAL FINDINGS: None. LUNG APICES: No significant abnormality of visualized lungs. IMPRESSION: 1. No significant abnormality. CT Facial: FINDINGS: FACIAL BONES: No fracture or other significant abnormality. PARANASAL SINUSES: No significant abnormality. ORBITS: No significant abnormality. SOFT TISSUES: Soft tissue swelling around the chin. VISUALIZED INTRACRANIAL STRUCTURES: No significant abnormality. ADDITIONAL FINDINGS: None. IMPRESSION: 1. No facial bone fracture. 2. Soft tissue swelling around the chin. Garvey/IV: Voiding Method Toilet Assessment and Plan Assessment and plan: Recurrent syncope -Complaints of syncopal episode x2 today, with loss of consciousness -Admits to similar episode approximately 1 year ago -CT negative for acute abnormalities -Initiate fall protocol -Neurochecks -Echo pending -Patient denies history of vertigo but has taken meclizine in the past, if Echo within normal limits may consider neurology consult Elevated D-dimer -@345.92 -VQ scan shows low probability for PE Thrombocytopenia -PLT 85 -History of ITP -We will hold off on anticoagulation -Monitor Chin swelling -Secondary to syncopal episode (patient states she landed on her chin injury with 1st syncopal episode) -Facial XR confirms facial swelling and negative for fractures -Supportive care History of chronic pain shoulder pain -s/p right shoulder surgery 04/20 -Continue Flexeril -Supportive care HTN -Monitor BP -Resume home hypertensive meds GERD -Continue PPI HLD -Continue statin Advance Directives: No VTE prophylaxis?: Mechanical Reason for no VTE Prophylaxis: Blood coagulation disorde Plan of care discussed with patient/family: Yes
[2020-05-10] MEDS: DOCUSATE SODIUM 100 MG CAP PO SCH (21:52)
[2020-05-11] MEDS ORDERED: BUTALB/ACETAMINOPHEN/CAFFEINE TAB PO PRN (04:00)
[2020-05-11] MEDS ORDERED: METOPROLOL TARTRATE 5 MG/5 ML INJ IV ONE (04:21)
[2020-05-11] MEDS: ACETAMINOPHEN 325 MG TAB PO PRN ×2 (04:27→10:00)
[2020-05-11 05:22] LABS: Hematocrit 33.2 % (30.3-42.9); Mean Corpuscular HGB Conc 33 % (30-34); Mean Corpuscular Volume 86 fl (79-97); Red Blood Count 3.85 M/mm3 (3.65-5.03); Red Cell Distribution Width 13.2 % (13.2-15.2)
[2020-05-11 05:23] LABS: Platelet Count 82 K/mm3 (140-440)
[2020-05-11 05:25] LABS: BUN/Creatinine Ratio 10; Blood Urea Nitrogen 9 mg/dL (7-17); Calcium 8.6 mg/dL (8.4-10.2); Chol/HDL Ratio 4.11 %; HDL Cholesterol 42 mg/dL (40-59); Hemolysis Index 6; LDL Cholesterol,Direct 100 mg/dL (50-130)
[2020-05-11 06:49] LABS: Total Cells Counted 100
[2020-05-11 06:50] LABS: Anisocytosis Few
[2020-05-11 06:51] LABS: Platelet Estimate Consistent w Auto
[2020-05-11] MEDS: DOCUSATE SODIUM 100 MG CAP PO SCH ×2 (09:59→21:29)
[2020-05-11] MEDS: DULoxetine 30 MG CAP PO SCH (10:00)
[2020-05-11] MEDS ORDERED: ESOMEPRAZOLE MAGNESIUM 40 MG PO SCH (10:00)
[2020-05-11] MEDS ORDERED: NON-FORMULARY EACH (Duloxetine Hcl [Drizalma Sprinkle] 60 MG Cap.Dr.Spr) PO SCH (10:00)
[2020-05-11] MEDS: PANTOPRAZOLE 40 MG TAB PO SCH (10:00)
--- NOTE | 2020-05-11 11:52 | Progress Note ---
Assessment and Plan Assessment and plan: 39-year-old female with a past medical history of syncopal episodes coming in with chief complaint of 2 syncopal episodes on the day of presentation. She denies any lightheadedness or dizziness prior to events. She had similar events about a year ago. She reports that she has been seen by artificial inseminator in the past and had ? Event monitor and stress test performed sometime in 2008. She does not remember exact details. Problems 1. Syncopal episodes Has no prodromal symptoms EKG not seen in chart Echocardiogram has been performed results still pending Due to recurrent syncopal episodes in the past, will consult cardiology for further evaluation-patient may need a loop recorder Continue to monitor closely Orthostatic vitals Doubt this is related to any seizure. 2. Elevated D-dimer -VQ scan shows low probability for PE 3. Thrombocytopenia -PLT 85 -Has a history of ITP 4. Jaw pain -Secondary to syncopal episode (patient states she landed on her chin injury with 1st syncopal episode) -Facial XR confirms facial swelling and negative for fractures -Supportive care 5. History of chronic pain shoulder pain -s/p right shoulder surgery 04/20 -Supportive care 6. HTN -Avoid beta-irvin or vasodilators for now -Started on KIM inhibitor 7. GERD -Continue PPI 8. HLD -Continue statin Full code History Interval history: Patient seen and examined at bedside this morning Vitals reviewed-blood pressure slightly elevated Patient is not on any blood pressure medications Hospitalist Physical - Physical exam Narrative exam: VITAL SIGNS: Reviewed. GENERAL: Awake HEAD: No signs of head trauma. EYES: Pupils are equal. Extraocular motions intact. MOUTH: Oropharynx is normal. NECK: No adenopathy, no JVD. CHEST: Chest with diminished breath sounds bilaterally. No wheezes, rales, or rhonchi. CARDIAC: normal S1 and S2, without murmurs, gallops, or rubs. ABDOMEN: Soft, non tender and non distended. No rebound or guarding, and no masses palpated. Bowel Sounds normal. MUSCULOSKELETAL: No edema NEUROLOGIC EXAM: Alert and oriented x3. No focal neurologic deficits SKIN: No obvious lesions - Constitutional Vitals: Temp Pulse Resp BP Pulse Ox 98.6 F 87 18 149/93 99 05/11/20 07:36 05/11/20 07:36 05/11/20 07:36 05/11/20 07:36 05/11/20 07:36 HEART Score - HEART Score Troponin: Troponin T < 0.010 ng/mL (0.00-0.029) 05/10/20 06:24 Results - Labs CBC & Chem 7: 05/11/20 04:13 05/11/20 04:13 Labs: Laboratory Last Values WBC 5.7 K/mm3 (4.5-11.0) 05/11/20 04:13 RBC 3.85 M/mm3 (3.65-5.03) 05/11/20 04:13 Hgb 11.0 gm/dl (10.1-14.3) 05/11/20 04:13 Hct 33.2 % (30.3-42.9) 05/11/20 04:13 MCV 86 fl (79-97) 05/11/20 04:13 MCH 29 pg (28-32) 05/11/20 04:13 MCHC 33 % (30-34) 05/11/20 04:13 RDW 13.2 % (13.2-15.2) 05/11/20 04:13 Plt Count 82 K/mm3 (140-440) L 05/11/20 04:13 Lymph % (Auto) Discovery Guide 05/11/20 04:13 Emanuel % (Auto) 5.9 % (0.0-7.3) 05/10/20 14:43 Eos % (Auto) 0.4 % (0.0-4.3) 05/10/20 14:43 Baso % (Auto) 0.4 % (0.0-1.8) 05/10/20 14:43 Lymph # (Auto) 2.8 K/mm3 (1.2-5.4) 05/10/20 14:43 Emanuel # (Auto) 0.4 K/mm3 (0.0-0.8) 05/10/20 14:43 Eos # (Auto) 0.0 K/mm3 (0.0-0.4) 05/10/20 14:43 Baso # (Auto) 0.0 K/mm3 (0.0-0.1) 05/10/20 14:43 Add Manual Diff Complete 05/11/20 04:13 Total Counted 100 05/11/20 04:13 Seg Neutrophils % Discovery Guide 05/11/20 04:13 Seg Neuts % (Manual) 27.0 % (40.0-70.0) L 05/11/20 04:13 Lymphocytes % (Manual) 65.0 % (13.4-35.0) H 05/11/20 04:13 Monocytes % (Manual) 7.0 % (0.0-7.3) 05/11/20 04:13 Eosinophils % (Manual) 1.0 % (0.0-4.3) 05/11/20 04:13 Nucleated RBC % Not Reportable 05/11/20 04:13 Seg Neutrophils # 3.4 K/mm3 (1.8-7.7) 05/10/20 14:43 Seg Neutrophils # Man 1.5 K/mm3 (1.8-7.7) L 05/11/20 04:13 Band Neutrophils # 0.0 K/mm3 05/11/20 04:13 Lymphocytes # (Manual) 3.7 K/mm3 (1.2-5.4) 05/11/20 04:13 Abs React Lymphs (Man) 0.0 K/mm3 05/11/20 04:13 Monocytes # (Manual) 0.4 K/mm3 (0.0-0.8) 05/11/20 04:13 Eosinophils # (Manual) 0.1 K/mm3 (0.0-0.4) 05/11/20 04:13 Basophils # (Manual) 0.0 K/mm3 (0.0-0.1) 05/11/20 04:13 Metamyelocytes # 0.0 K/mm3 05/11/20 04:13 Myelocytes # 0.0 K/mm3 05/11/20 04:13 Promyelocytes # 0.0 K/mm3 05/11/20 04:13 Blast Cells # 0.0 K/mm3 05/11/20 04:13 WBC Morphology Not Reportable 05/11/20 04:13 Hypersegmented Neuts Not Reportable 05/11/20 04:13 Hyposegmented Neuts Not Reportable 05/11/20 04:13 Hypogranular Neuts Not Reportable 05/11/20 04:13 Smudge Cells Not Reportable 05/11/20 04:13 Toxic Granulation Not Reportable 05/11/20 04:13 Toxic Vacuolation Not Reportable 05/11/20 04:13 Dohle Bodies Not Reportable 05/11/20 04:13 Pelger-Huet Anomaly Not Reportable 05/11/20 04:13 Tawanda Rods Not Reportable 05/11/20 04:13 Platelet Estimate Consistent w auto 05/11/20 04:13 Clumped Platelets Not Reportable 05/11/20 04:13 Plt Clumps, EDTA Not Reportable 05/11/20 04:13 Large Platelets Not Reportable 05/11/20 04:13 Giant Platelets Not Reportable 05/11/20 04:13 Platelet Satelliting Not Reportable 05/11/20 04:13 Plt Morphology Comment Not Reportable 05/11/20 04:13 RBC Morphology Not Reportable 05/11/20 04:13 Dimorphic RBCs Not Reportable 05/11/20 04:13 Polychromasia Not Reportable 05/11/20 04:13 Hypochromasia Not Reportable 05/11/20 04:13 Poikilocytosis Not Reportable 05/11/20 04:13 Anisocytosis Few 05/11/20 04:13 Microcytosis Not Reportable 05/11/20 04:13 Macrocytosis Not Reportable 05/11/20 04:13 Spherocytes Not Reportable 05/11/20 04:13 Pappenheimer Bodies Not Reportable 05/11/20 04:13 Sickle Cells Not Reportable 05/11/20 04:13 Target Cells Not Reportable 05/11/20 04:13 Tear Drop Cells Not Reportable 05/11/20 04:13 Ovalocytes Not Reportable 05/11/20 04:13 Helmet Cells Not Reportable 05/11/20 04:13 Hernandez-Bussey Bodies Not Reportable 05/11/20 04:13 Marlin Rings Not Reportable 05/11/20 04:13 [place] Cells Not Reportable 05/11/20 04:13 Bite Cells Not Reportable 05/11/20 04:13 Crenated Cell Not Reportable 05/11/20 04:13 Elliptocytes Not Reportable 05/11/20 04:13 Acanthocytes (Spur) Not Reportable 05/11/20 04:13 Rouleaux Not Reportable 05/11/20 04:13 Hemoglobin C Crystals Not Reportable 05/11/20 04:13 Schistocytes Not Reportable 05/11/20 04:13 Malaria parasites Not Reportable 05/11/20 04:13 Ervin Bodies Not Reportable 05/11/20 04:13 Hem Pathologist Commnt No 05/11/20 04:13 PT 12.8 Sec. (12.2-14.9) 05/10/20 06:47 INR 0.97 (0.87-1.13) 05/10/20 06:47 APTT 22.5 Sec. (24.2-36.6) L 05/10/20 06:47 D-Dimer 345.92 ng/mlDDU (0-234) H 05/10/20 06:47 Sodium 140 mmol/L (137-145) 05/11/20 04:13 Potassium 3.5 mmol/L (3.6-5.0) L 05/11/20 04:13 Chloride 105.4 mmol/L (98-107) 05/11/20 04:13 Carbon Dioxide 28 mmol/L (22-30) 05/11/20 04:13 Anion Gap 10 mmol/L 05/11/20 04:13 BUN 9 mg/dL (7-17) 05/11/20 04:13 Creatinine 0.9 mg/dL (0.6-1.2) 05/11/20 04:13 Estimated GFR > 60 ml/min 05/11/20 04:13 BUN/Creatinine Ratio 10 % 05/11/20 04:13 Glucose 118 mg/dL (65-100) H 05/11/20 04:13 Lactic Acid 2.00 mmol/L (0.7-2.0) 05/10/20 06:57 Calcium 8.6 mg/dL (8.4-10.2) 05/11/20 04:13 Magnesium 2.10 mg/dL (1.7-2.3) 05/10/20 Unknown Total Bilirubin 0.20 mg/dL (0.1-1.2) 05/10/20 06:24 AST 22 units/L (5-40) 05/10/20 06:24 ALT 26 units/L (7-56) 05/10/20 06:24 Alkaline Phosphatase 119 units/L (35-129) 05/10/20 06:24 Troponin T < 0.010 ng/mL (0.00-0.029) 05/10/20 06:24 NT-Pro-B Natriuret Pep 30.46 pg/mL (0-900) 05/10/20 Unknown Total Protein 6.9 g/dL (6.3-8.2) 05/10/20 06:24 Albumin 4.1 g/dL (3.9-5) 05/10/20 06:24 Albumin/Globulin Ratio 1.5 % 05/10/20 06:24 Triglycerides 304 mg/dL (2-149) H 05/11/20 04:13 Cholesterol 173 mg/dL (50-199) 05/11/20 04:13 LDL Cholesterol Direct 100 mg/dL (50-130) 05/11/20 04:13 HDL Cholesterol 42 mg/dL (40-59) 05/11/20 04:13 Cholesterol/HDL Ratio 4.11 % 05/11/20 04:13 Urine Color Francheska (Yellow) 05/10/20 Unknown Urine Turbidity Slightly-cloudy (Clear) 05/10/20 Unknown Urine pH 5.0 (5.0-7.0) 05/10/20 Unknown Ur Specific [place] 1.029 (1.003-1.030) 05/10/20 Unknown Urine Protein 30 mg/dl mg/dL (Negative) 05/10/20 Unknown Urine Glucose (UA) Neg mg/dL (Negative) 05/10/20 Unknown Urine Ketones Neg mg/dL (Negative) 05/10/20 Unknown Urine Blood Neg (Negative) 05/10/20 Unknown Urine Nitrite Neg (Negative) 05/10/20 Unknown Urine Bilirubin Neg (Negative) 05/10/20 Unknown Urine Urobilinogen 2.0 mg/dL (<2.0) 05/10/20 Unknown Ur Leukocyte Esterase Neg (Negative) 05/10/20 Unknown Urine WBC (Auto) 3.0 /HPF (0.0-6.0) 05/10/20 Unknown Urine RBC (Auto) 1.0 /HPF (0.0-6.0) 05/10/20 Unknown U Epithel Cells (Auto) 9.0 /HPF (0-13.0) 05/10/20 Unknown Hyaline Casts 1 /LPF 05/10/20 Unknown Urine Mucus 3+ /HPF 05/10/20 Unknown Urine Opiates Screen Positive 05/10/20 Unknown Urine Methadone Screen Negative 05/10/20 Unknown Ur Barbiturates Screen Negative 05/10/20 Unknown Ur Phencyclidine Scrn Negative 05/10/20 Unknown Ur Amphetamines Screen Negative 05/10/20 Unknown U Benzodiazepines Scrn Negative 05/10/20 Unknown Urine Cocaine Screen Negative 05/10/20 Unknown U Marijuana (THC) Screen Negative 05/10/20 Unknown Drugs of Abuse Note Disclamer 05/10/20 Unknown Plasma/Serum Alcohol < 0.01 % (0-0.07) 05/10/20 06:47 - Diagnostic Impressions Diagnostic Impressions: Echocardiogram 05/10/20 21:05 Transthoracic Echocardiogram Indication: Syncope BP: 183/95 HR: 80 Conclusions *The left ventricular chamber size is normal. *There is no left ventricular hypertrophy. *Global left ventricular wall motion and contractility are within normal limits. *Normal left ventricular diastolic filling is observed. *The right ventricular systolic pressure is calculated at 26 mmHg. *There is a greater than 50% respiratory change in the inferior vena cava dimension. Findings Left Ventricle: The left ventricular chamber size is normal. There is no left ventricular hypertrophy. Global left ventricular wall motion and contractility are within normal limits. Global left ventricular systolic function is normal. The estimated ejection fraction is 55-60%. Normal left ventricular diastolic filling is observed. Left Atrium: The left atrium is mildly dilated. Right Ventricle: The right ventricular cavity size is normal. The right ventricular global systolic function is normal. Right Atrium: The right atrial cavity size is normal. Aortic Valve: There is no evidence of aortic valve thickening. There is no evidence of aortic regurgitation. Mitral Valve: The mitral valve leaflets do not appear thickened. There is trace of mitral regurgitation. Tricuspid Valve: The tricuspid valve leaflets are normal. There is trace tricuspid regurgitation. The right ventricular systolic pressure is calculated at 26 mmHg. Pulmonic Valve: There is no evidence of pulmonic valve thickening. There is mild pulmonic regurgitation. Pericardium: There is no pericardial effusion. Aorta: The aorta appears normal. Venous: The inferior vena cava appears normal in size. There is a greater than 50% respiratory change in the inferior vena cava dimension. Measurements Chambers 2D Name Value Normal Range IVSd (2D) 1.1 cm (0.6 - 1.1) LVPWd (2D) 1.13 cm (0.6 - 1.1) LVIDd (2D) 4.5 cm (3.7 - 5.6) LVIDs (2D) 2.61 cm (2 - 3.8) LV FS (2D) 42.08 % - EF Teichholz (2D) 73.22 % - Ao root diameter (2D) 3.05 cm (2 - 3.7) Volumes/Mass Name Value Normal Range LA ESV SP 4CH (A/L) 67.81 ml - LA ESV SP 2CH (A/L) 69.59 ml - LA ESV BP (A/L) 70.35 ml - LA ESV BP (A/L) index 35.71 ml/m2 - LA ESV SP 4CH (MOD) 59.45 ml - LA ESV SP 2CH (MOD) 67.48 ml - LA ESV BP (MOD) 64.69 ml - LA ESV BP (MOD) index 32.84 ml/m2 - Diastolic/Systolic Function Name Value Normal Range MV E-wave Vmax 0.75 m/sec - MV deceleration time 221.28 msec - MV A-wave Vmax 0.62 m/sec - MV E:A ratio 1.21 ratio - Aortic Valve Name Value Normal Range AV Vmax 1.46 m/sec - AV VTI 28.96 cm - AV peak gradient 8.48 mmHg - AV mean gradient 4.28 mmHg - LVOT diameter 2.09 cm - LVOT Vmax 1.48 m/sec - LVOT VTI 34.04 cm - LVOT peak gradient 8.8 mmHg - LVOT mean gradient 4 mmHg - SV LVOT 116.37 ml - PACO (continuity Vmax) 3.48 cm2 - PACO (continuity VTI) 4.02 cm2 - Ascending Ao 2.81 cm - Tricuspid Valve Name Value Normal Range TR Vmax 2.41 m/sec - TR peak gradient 23 mmHg - RAP 3 mmHg - RVSP 26 mmHg - IVC diameter 1.85 cm (1.2 - 2.3) Pulmonic Valve/Qp:Qs Name Value Normal Range PV Vmax 1.05 m/sec - PV peak gradient 4.37 mmHg - CT end-diastolic Vmax 1.11 m/sec - PV acceleration time 121.79 msec - Garvey/IV: Voiding Method Toilet Active Medications - Current Medications Current Medications: Generic Name Dose Route Start Last Admin Trade Name Freq PRN Reason Stop Dose Admin Acetaminophen 650 mg 05/10/20 17:41 05/11/20 10:00 Acetaminophen 325 Mg Tab PO 650 mg Q4H PRN Administration Pain, Mild (1-3) Acetaminophen/Butalbital/Caffeine 1 tab 05/11/20 04:00 Butalb/Acetaminophen/Caffeine Tab PO Q4H PRN Headache Atorvastatin Calcium 20 mg 05/10/20 22:00 05/10/20 21:52 Atorvastatin 20 Mg Tab PO 20 mg QHS COLLIN Administration Cyclobenzaprine HCl 10 mg 05/10/20 21:06 05/10/20 21:52 Cyclobenzaprine 10 Mg Tab PO 10 mg TID PRN Administration Muscle Spasm Docusate Sodium 100 mg 05/10/20 22:00 05/11/20 09:59 Docusate Sodium 100 Mg Cap PO 100 mg BID COLLIN Administration Duloxetine HCl 60 mg 05/11/20 10:00 05/11/20 10:00 Duloxetine 30 Mg Cap PO 60 mg QDAY COLLIN Administration Lisinopril 5 mg 05/11/20 12:00 Lisinopril 5 Mg Tab PO QDAY COLLIN Ondansetron HCl 4 mg 05/10/20 21:03 Ondansetron 4 Mg/2 Ml Inj IV Q6H PRN Nausea And Vomiting Pantoprazole Sodium 40 mg 05/11/20 10:00 05/11/20 10:00 Pantoprazole 40 Mg Tab PO 40 mg DAILY COLLIN Administration Sodium Chloride 10 ml 05/10/20 22:00 05/11/20 10:00 Sodium Chloride 0.9% 10 Ml Flush Syringe IV 10 ml BID COLLIN Administration Sodium Chloride 10 ml 05/10/20 21:03 05/11/20 04:27 Sodium Chloride 0.9% 10 Ml Flush Syringe IV 10 ml PRN PRN Administration LINE FLUSH
[2020-05-11] MEDS ORDERED: LISINOPRIL 10 MG TAB PO SCH ×2 (12:00)
[2020-05-11] MEDS ORDERED: LISINOPRIL 5 MG TAB PO SCH (12:00)
[2020-05-11] MEDS ORDERED: MIDODRINE 5 MG TAB PO SCH (14:00)
--- NOTE | 2020-05-11 14:33 | Consultation ---
History of Present Illness Consult date: 05/11/20 Requesting physician: TANIYA MIRANDA Consult reason: syncope History of present illness: The pt is a 55 YO female with a past medical history of HTN, HLP, GERD, fibromyalgia, ITP. She is previously unknown to our practice. She presented with c/o recurrent syncope. Pt reports that in 01/2019, she experienced her first syncopal episode. She was in the bathroom urinating when she lost consciousness. She does not recall any other details surrounding the event. She was unconscious for several minutes until her daughter found her and assisted her up. During the syncopal episode, she fell onto the floor onto her right shoulder and has since required shoulder surgery. On Friday night, she awoke from sleep due to some chest pressure and indigestion. She got up to go to the bathroom to urinate. She last recalls sitting on the commode and then lost consciousness. She was lying on the floor when she regained consciousness. She still had chest pressure at that time. She was in the bathroom for a total of approx 15-20 minutes before her came in to check on her. Her assisted her up and as she was walking though their bedroom she again lost consciousness and fell to the ground. She hit her chin during the fall. Pt reports that she has been experiencing some dyspnea on exertion and palpitations with exertion for the past several months. She also reports some intermittent epigastric chest pr essure for the past month which has no clear aggravating or alleviating factors. She denies any known prior cardiac issues. She reports undergoing treadmill stress test last year at the recommendation of her neurologist, Dr. Michael. The stress test was normal to her knowledge. Past History Past Medical History: other (as per HPI) Past Surgical History: Other (Status post creation of urethral pouch,Hysterectomy, Left breast cyst removal, scar tissue removed (due to hysterectomy). right shoulder 04/20, cholecystectomy) Social history: , lives with family, full code. denies: smoking, alcohol abuse, prescription drug abuse, IV drug use Family history: hypertension Medications and Allergies Allergies Allergy/AdvReac Type Severity Reaction Status Date / Time aspirin Allergy Bleeding Verified 09/28/15 14:31 ibuprofen Allergy Bleeding Verified 09/28/15 14:31 meperidine HCl [From Demerol] Allergy Headache Verified 09/28/15 14:31 oxycodone HCl [From Percocet] Allergy Itching Verified 09/06/16 11:32 Sulfa (Sulfonamide Allergy Bleeding Verified 09/28/15 14:31 Antibiotics) Home Medications Medication Instructions Recorded Confirmed Last Taken Type Amitriptyline [Elavil] 10 mg PO QHS 05/10/20 05/10/20 Unknown History AtorvaSTATin [Lipitor] 20 mg PO QHS 05/10/20 05/10/20 Unknown History Cyclobenzaprine [Flexeril] 10 mg PO TID PRN 05/10/20 05/11/20 05/09/20 History Dicyclomine [Bentyl] 10 mg PO QID 05/10/20 05/11/20 05/09/20 History Duloxetine HCl [Drizalma Sprinkle] 60 mg PO QDAY 05/10/20 05/11/20 05/09/20 History Esomeprazole Magnesium [NexIUM] 40 mg PO QDAY 05/10/20 05/11/20 05/09/20 History HYDROcodone/APAP 5-325 [[place] 1 each PO Q6HR PRN 05/10/20 05/11/20 05/08/20 History 5/325] Lubiprostone (Nf) [Amitiza (Nf)] 1 cap PO BID 05/10/20 05/11/20 05/09/20 History Meclizine [Antivert] 25 mg PO TID PRN 05/10/20 05/11/20 05/09/20 History traMADoL [Ultram] 50 mg PO Q4HR PRN 05/10/20 05/11/20 05/09/20 History traZODone [Desyrel] 100 mg PO QHS 05/10/20 05/11/20 05/09/20 History Active Meds: Active Medications Acetaminophen (Acetaminophen 325 Mg Tab) 650 mg PO Q4H PRN PRN Reason: Pain, Mild (1-3) Last Admin: 05/11/20 10:00 Dose: 650 mg Documented by: Acetaminophen/Butalbital/Caffeine (Butalb/Acetaminophen/Caffeine Tab) 1 tab PO Q4H PRN PRN Reason: Headache Last Admin: 05/11/20 13:47 Dose: 1 tab Documented by: Atorvastatin Calcium (Atorvastatin 20 Mg Tab) 20 mg PO QHS [facility] Last Admin: 05/10/20 21:52 Dose: 20 mg Documented by: Cyclobenzaprine HCl (Cyclobenzaprine 10 Mg Tab) 10 mg PO TID PRN PRN Reason: Muscle Spasm Last Admin: 05/10/20 21:52 Dose: 10 mg Documented by: Docusate Sodium (Docusate Sodium 100 Mg Cap) 100 mg PO BID [facility] Last Admin: 05/11/20 09:59 Dose: 100 mg Documented by: Duloxetine HCl (Duloxetine 30 Mg Cap) 60 mg PO QDAY [facility] Last Admin: 05/11/20 10:00 Dose: 60 mg Documented by: Lisinopril (Lisinopril 5 Mg Tab) 5 mg PO QDAY [facility] Last Admin: 05/11/20 12:00 Dose: 5 mg Documented by: Ondansetron HCl (Ondansetron 4 Mg/2 Ml Inj) 4 mg IV Q6H PRN PRN Reason: Nausea And Vomiting Pantoprazole Sodium (Pantoprazole 40 Mg Tab) 40 mg PO DAILY [facility] Last Admin: 05/11/20 10:00 Dose: 40 mg Documented by: Sodium Chloride (Sodium Chloride 0.9% 10 Ml Flush Syringe) 10 ml IV BID [facility] Last Admin: 05/11/20 10:00 Dose: 10 ml Documented by: Sodium Chloride (Sodium Chloride 0.9% 10 Ml Flush Syringe) 10 ml IV PRN PRN PRN Reason: LINE FLUSH Last Admin: 05/11/20 04:27 Dose: 10 ml Documented by: Review of Systems Constitutional: no weight loss, no weight gain, no fever, no chills, no sweats Ears, nose, mouth and throat: no ear pain, no nose pain, no sinus pressure, no sinus pain Cardiovascular: chest pain, palpitations, syncope, dyspnea on exertion, high blood pressure, decreased exercise tolerance, no orthopnea, no edema, no lightheadedness Respiratory: dyspnea on exertion, no cough, no congestion, no wheezing, no pain on inspiration Gastrointestinal: no abdominal pain, no nausea, no vomiting, no diarrhea, no constipation, no change in bowel habits Genitourinary Female: no pelvic pain, no flank pain, no dysuria, no urinary frequency, no urgency Musculoskeletal: no neck stiffness, no neck pain, no low back pain Integumentary: no rash, no pruritis, no redness, no sores, no wounds Neurological: syncope, no head injury, no paralysis, no weakness, no parathesias, no numbness, no tingling, no seizures Psychiatric: no anxiety Endocrine: no cold intolerance, no heat intolerance Hematologic/Lymphatic: no easy bruising Allergic/Immunologic: no urticaria Physical Examination Vital Signs Temp Pulse Resp BP Pulse Ox 97.8 F 86 18 102/57 100 05/10/20 05:59 05/10/20 05:59 05/10/20 05:59 05/10/20 05:59 05/10/20 05:59 General appearance: no acute distress HEENT: Positive: PERRL, Normocephaly, Mucus Membranes Moist Neck: Positive: neck supple, trachea midline Cardiac: Positive: Reg Rate and Rhythm, S1/S2 Lungs: Positive: clear to auscultation Neuro: Positive: Grossly Intact Abdomen: Negative: Tender Skin: Negative: Rash Musculoskeletal: No Pain Extremities: Absent: edema Results 05/11/20 04:13 05/11/20 04:13 Lipids 05/11/20 Range/Units 04:13 Triglycerides 304 H (2-149) mg/dL Cholesterol 173 (50-199) mg/dL HDL Cholesterol 42 (40-59) mg/dL Cholesterol/HDL Ratio 4.11 % CBC 05/10/20 05/11/20 Range/Units 14:43 04:13 WBC 6.6 5.7 (4.5-11.0) K/mm3 RBC 3.93 3.85 (3.65-5.03) M/mm3 Hgb 11.3 11.0 (10.1-14.3) gm/dl Hct 34.1 33.2 (30.3-42.9) % Plt Count 85 L 82 L (140-440) K/mm3 Lymph # (Auto) 2.8 (1.2-5.4) K/mm3 [place] # (Auto) 0.4 (0.0-0.8) K/mm3 Eos # (Auto) 0.0 (0.0-0.4) K/mm3 Baso # (Auto) 0.0 (0.0-0.1) K/mm3 Comprehensive Metabolic Panel 05/11/20 Range/Units 04:13 Sodium 140 (137-145) mmol/L Potassium 3.5 L (3.6-5.0) mmol/L Chloride 105.4 (98-107) mmol/L Carbon Dioxide 28 (22-30) mmol/L BUN 9 (7-17) mg/dL Creatinine 0.9 (0.6-1.2) mg/dL Glucose 118 H (65-100) mg/dL Calcium 8.6 (8.4-10.2) mg/dL - Imaging and Cardiology Echo: report reviewed EKG: report reviewed, image reviewed EKG interpretations - Telemetry EKG Rhythm: Sinus Rhythm - EKG Sinus rhythms and dysrhythmias: sinus rhythm Assessment and Plan Head and neck imaging with no acute findings. V/Q scan low prob for PE. ECG with NAF, Cathleen negative for AMI x 1 set. Orthostatics unremarkable. tte reviewed - EF 55-60%. tele reviewed - pt in SR with a few bouts of 8-10 beat runs NSVT noted. Initiate BB and ASA 81. Plan for lexiscan MPI stress test in AM. NPO after MN. The patient has been seen in conjunction with Dr. Warner who agrees with the a ssessment and plan of care. - Patient Problems (1) Recurrent syncope Current Visit: Yes Status: Acute (2) NSVT (nonsustained ventricular tachycardia) Current Visit: Yes Status: Acute (3) Chest pain Current Visit: Yes Status: Acute (4) HTN (hypertension) Current Visit: Yes Status: Chronic (5) Fibromyalgia Current Visit: Yes Status: Chronic (6) Chronic ITP (idiopathic thrombocytopenic purpura) Current Visit: Yes Status: Chronic (7) GERD (gastroesophageal reflux disease) Current Visit: Yes Status: Chronic
[2020-05-11] MEDS ORDERED: POTASSIUM CHLORIDE ER 20 MEQ TAB PO ONE (16:03)
[2020-05-11] MEDS: FLUTICASONE PROPIONATE NASAL SPRAY 16 GM NS SCH (17:58)
[2020-05-11] MEDS: METOPROLOL TARTRATE 25 MG TAB PO SCH (21:29)
[2020-05-12 05:55] LABS: BUN/Creatinine Ratio 10; Blood Urea Nitrogen 9 mg/dL (7-17); Hemolysis Index 5
[2020-05-12] MEDS ORDERED: REGADENOSON 0.4 MG/5 ML INJ IV ONE (07:15)
[2020-05-12] MEDS ORDERED: LISINOPRIL 5 MG TAB PO SCH (10:00)
[2020-05-12] MEDS ORDERED: ASPIRIN 81 MG TAB CHEW PO SCH (10:00)
--- NOTE | 2020-05-12 10:01 | Progress Note ---
Assessment and Plan Proceed with lexiscan MPI stress test. Await findings. The patient has been seen in conjunction with Dr. Warner who agrees with the assessment and plan of care. - Patient Problems (1) Recurrent syncope Current Visit: Yes Status: Acute (2) NSVT (nonsustained ventricular tachycardia) Current Visit: Yes Status: Acute (3) Chest pain Current Visit: Yes Status: Acute (4) HTN (hypertension) Current Visit: Yes Status: Chronic (5) Fibromyalgia Current Visit: Yes Status: Chronic (6) Chronic ITP (idiopathic thrombocytopenic purpura) Current Visit: Yes Status: Chronic (7) GERD (gastroesophageal reflux disease) Current Visit: Yes Status: Chronic Subjective Date of service: 05/12/20 Principal diagnosis: syncope Interval history: pt for stress test today, no current cardiac complaints. tele reviewed - in SR, no acute events noted overnight. Objective Last Vital Signs Temp 98.0 F 05/12/20 04:13 Pulse 79 05/12/20 04:13 Resp 20 05/12/20 04:13 BP 166/91 05/12/20 04:13 Pulse Ox 100 05/12/20 04:13 - Physical Examination General: No Apparent Distress HEENT: Positive: PERRL, Normocephaly, Mucus Membranes Moist Neck: Positive: neck supple, trachea midline Cardiac: Positive: Reg Rate and Rhythm, S1/S2 Lungs: Positive: Decreased Breath Sounds Neuro: Positive: Grossly Intact Abdomen: Negative: Tender Skin: Negative: Rash Musculoskeletal: No Pain Extremities: Absent: edema - Labs and Meds Comprehensive Metabolic Panel 05/12/20 Range/Units 04:22 Sodium 140 (137-145) mmol/L Potassium 4.2 (3.6-5.0) mmol/L Chloride 103.5 (98-107) mmol/L Carbon Dioxide 29 (22-30) mmol/L BUN 9 (7-17) mg/dL Creatinine 0.9 (0.6-1.2) mg/dL Glucose 102 H (65-100) mg/dL Calcium 9.0 (8.4-10.2) mg/dL - Imaging and Cardiology EKG: report reviewed, image reviewed Echo: report reviewed - Telemetry EKG Rhythm: Sinus Rhythm - EKG Sinus rhythms and dysrhythmias: sinus rhythm
[2020-05-12] MEDS: DOCUSATE SODIUM 100 MG CAP PO SCH (12:25)
[2020-05-12] MEDS: METOPROLOL TARTRATE 25 MG TAB PO SCH (12:25)
[2020-05-12] MEDS: ACETAMINOPHEN 325 MG TAB PO PRN (12:25)
[2020-05-12] MEDS: PANTOPRAZOLE 40 MG TAB PO SCH (12:26)
[2020-05-12] MEDS: DULoxetine 30 MG CAP PO SCH (12:26)
[2020-05-12] MEDS: FLUTICASONE PROPIONATE NASAL SPRAY 16 GM NS SCH (12:28)
[2020-05-12 12:30] VITALS: BP 142/98
--- NOTE | 2020-05-12 12:57 | Treadmill Report ---
The patient is a 55-year-old female with history of hypertension, hyperlipidemia, gastroesophageal reflux disease and fibromyalgia, presented with recurrent syncope. She was unconscious for several minutes after urinating in the bathroom. She developed prior to admission some anterior chest pain and indigestion and again lost consciousness when she went to the bathroom. Baseline EKG showed sinus rhythm within normal limits. The patient received IV regadenoson 0.4 mg injection without any problems. The patient tolerated IV regadenoson well except for some headache. EKG continued to show sinus rhythm without any significant ST-T changes to suggest ischemia. The patient had resting images. Myocardial perfusion images using technetium 99m sestamibi tracer. Post-vasodilation, the patient had myocardial perfusion images using the same agent along with the gated study. Following findings were noted. Myocardial perfusion images showed mild anterior defect in the apical and mid area with the rest of the myocardial harper showing normal perfusion. Similar finding or worse finding noted in the anterior wall at rest. This suggests most likely an artifact secondary to breast attenuation. Gated study showed a calculated ejection fraction to be 60% with normal wall motion. The patient's left ventricular end-diastolic volume was found to be 112 with end-systolic volume of 45 mL. Transient ischemic dilation of 1.41 was noted. FINAL IMPRESSION: 1. The patient tolerated IV regadenoson well. No chest pain to suggest angina. 2. EKG showed sinus rhythm with no ST-T changes to suggest ischemia. 3. Myocardial perfusion images showed no significant reversible defects. She has mild anterior defect, which was felt to be artifactual secondary to breast attenuation. 4. Normal left ventricular systolic function and wall motion noted. Transient ischemic dilation ratio was found to be 1.419. Significance of this is not clear in the above setting. Prognostically, this appears to be low risk study. JOB# [id number] SALUD/GUY MCKEON
--- NOTE | 2020-05-12 14:05 | Discharge Summary ---
Providers - Providers Date of Admission: 05/10/20 11:46 Date of discharge: 05/12/20 Attending physician: TANIYA MIRANDA 05/10/20 21:05 Occupational Therapy Evaluate and Treat [CONS] Routine Comment: Reason For Exam: recent fall, syncope Physical Therapy Evaluation and Treat [CONS] Routine Comment: Reason For Exam: recent fall, syncope 05/11/20 11:34 Consult to Physician [CONS] Routine Comment: Consulting Provider: ELDER EGAN Physician Instructions: Reason For Exam: Syncopal episodes Primary care physician: EMMA COMER Hospitalization Condition: Stable Hospital course: 39-year-old female with a past medical history of syncopal episodes coming in with chief complaint of 2 syncopal episodes on the day of presentation. She denies any lightheadedness or dizziness prior to events. She had similar events about a year ago. She reports that she has been seen by meter tester primary in the past and had ? Event monitor and stress test performed sometime in 2008. She does not remember exact details. Due to events, patient was brought to the hospital. In the ER, EKG showed normal sinus rhythm. Labs showed elevated D-dimer. VQ scan showed low probability of PE. Patient was admitted for further evaluation. Echocardiogram ordered. Due to recurrent episodes in the past, cardiology was consulted. Elodia naton was noted to have nonsustained V. tach on telemetry and started on low-dose metoprolol. She was scheduled to have a stress test performed. Patient had a stress test on 05/12 and results showed no reversible ischemia. As per cardiology, patient can be discharged to follow-up with Dr. Sparks in the office in 2 weeks. Patient agrees with plan Disposition: DC-01 TO HOME OR SELFCARE Time spent for discharge: 32 mins - Discharge Diagnoses (1) Chest pain Status: Acute (2) NSVT (nonsustained ventricular tachycardia) Status: Acute (3) Chronic ITP (idiopathic thrombocytopenic purpura) Status: Chronic Core Measure Documentation - Palliative Care Palliative Care/ Comfort Measures: Not Applicable - Core Measures Any of the following diagnoses?: none Exam - Physical Exam Narrative exam: VITAL SIGNS: Reviewed. GENERAL: Awake HEAD: No signs of head trauma. EYES: Pupils are equal. Extraocular motions intact. MOUTH: Oropharynx is normal. NECK: No adenopathy, no JVD. CHEST: Chest with diminished breath sounds bilaterally. No wheezes, rales, or rhonchi. CARDIAC: normal S1 and S2, without murmurs, gallops, or rubs. ABDOMEN: Soft, non tender and non distended. No rebound or guarding, and no masses palpated. Bowel Sounds normal. MUSCULOSKELETAL: No edema NEUROLOGIC EXAM: Alert and oriented x3. No focal neurologic deficits SKIN: No obvious lesions - Constitutional Vitals: Temp Pulse Resp BP Pulse Ox 98.0 F 79 20 142/98 100 05/12/20 04:13 05/12/20 04:13 05/12/20 04:13 05/12/20 10:51 05/12/20 04:13 Plan Additional Instructions: Current medications as prescribed. Follow-up with cardiology (Dr. Sparks) within 2 weeks ([phone]). Follow up with: EMMA COMER MD [Primary Care Provider] - 3-5 Days LETY SPARKS MD [Staff Physician] - 7 Days Prescriptions: Metoprolol [Lopressor TAB] 25 mg PO BID #60 tablet lisinopriL [Zestril TAB] 5 mg PO QDAY #30 tablet
--- NOTE | 2020-05-12 14:05 | Event Note ---
Date: 05/12/20 S/p lexiscan MPI stress test today which was negative. Currently stable cardiac status. Pt may discharge from cardiology standpoint. Recommend follow up in our office with Dr. Warner within 2 weeks ([phone]). Boni DELUNA NP / DR. WARNER
== END 2020-05-12 17:45 | disposition home or self-care (01) ==
LOC: ED 05:54 → 4A 11:46
PROVIDERS: ADMIT Internal Medicine; ATTEND Internal Medicine
DX: R55 Syncope and collapse (principal); D69.6 Thrombocytopenia, unspecified; I10 Essential (primary) hypertension; K21.9 Gastro-esophageal reflux disease without esophagitis; E78.5 Hyperlipidemia, unspecified; M25.511 Pain in right shoulder; R22.0 Localized swelling, mass and lump, head; R74.8 Abnormal levels of other serum enzymes; R68.84 Jaw pain; I47.2 Ventricular tachycardia; M79.7 Fibromyalgia; D69.3 Immune thrombocytopenic purpura; Z90.710 Acquired absence of both cervix and uterus; Z98.891 History of uterine scar from previous surgery; Z90.49 Acquired absence of other specified parts of digestive tract; Z79.82 Long term (current) use of aspirin; Z79.899 Other long term (current) drug therapy
CPT/HCPCS: 36415; 70450; 70486; 70496; 70498; 71045; 72125; 78452; 78580; 80048; 80053; 80061; 80307; 81001; 82140; 83735; 83880; 84484; 85025; 85379; 85610; 85730; 93005; 93017; 93306; 96361; 96374; 97110; 97165; 99285; A9270; A9502; A9540; G0378; J2785; J7030; Q9967; 80320; 85007; G0480